=== PATIENT | male | born 1985 | race Asian ===

== ENCOUNTER 2023-06-15 13:30 | Emergency (ER) | payer MEDICAID ==
[~2023-06-15] VITALS: Ht 165.1 cm; Wt 72.6 kg
[~2023-06-15 13:30] MED LIST: CEFU500T73 PO; PYR100 PO
[2023-06-15 14:46] VITALS: BP 139/90; PULSE 83; RESP 16; TEMP 97.1; O2SAT 99
[2023-06-15 16:16] LABS: APPEARANCE,URINE CLEAR (CLEAR); BILIRUBIN,URINE 1+ (NEGATIVE); BLOOD, URINE TRACE-I (NEGATIVE); COLOR,URINE YELLOW (YELLOW); LEUKOCYTE ESTERASE ,URINE 1+ (NEGATIVE); NITRITE, URINE NEGATIVE (NEGATIVE); PROTEIN,URINE NEGATIVE (NEGATIVE); UGLUCOSE NEGATIVE (NEGATIVE); UROBILINOGEN,URINE 0.2 EU/dL (0.2 - 1)
[2023-06-15 16:26] LABS: BACTERIA,URINE FEW /HPF (None Seen); RBC,URINE 0-5 /HPF (0-5)
[2023-06-15 16:27] LABS: ICTOTEST NEGATIVE (NEGATIVE); SQUAMOUS EPITHELIAL CELL,UR 0-3 (FEW) /LPF (0-3 (FEW))
[2023-06-15] MEDS ORDERED: VIB100 PO (16:29)
[2023-06-15] MEDS: cefTRIAXone 500 MG in LIDOCAINE MPF 1% 1 ML IM ONE (16:46)
[2023-06-15 16:50] LABS: FLU A ANTIGEN negative (NEGATIVE); FLU B ANTIGEN negative (NEGATIVE)
[2023-06-16 09:04] LABS: NEISSERIA GONORRHOEAE PCR Detected (NOTdetected)
== END 2023-06-15 16:37 | disposition home or self-care (01) ==
LOC: MED 13:30
DX: N39.0 Urinary tract infection, site not specified (principal); Z20.822 Contact with and (suspected) exposure to COVID-19; Z79.899 Other long term (current) drug therapy; Z79.2 Long term (current) use of antibiotics
CPT/HCPCS: 81001; 87086; 87491; 99283

== ENCOUNTER 2023-06-24 04:04 | Emergency (ER) | payer MEDICAID ==
[~2023-06-24] VITALS: Ht 165.1 cm; Wt 72.6 kg
[~2023-06-24 04:04] MED LIST changes: +VIB100 PO
[2023-06-24 04:13] VITALS: BP 149/91; PULSE 96; RESP 20; TEMP 98; O2SAT 98
[2023-06-24 04:54] LABS: APPEARANCE,URINE CLEAR (CLEAR); BILIRUBIN,URINE NEGATIVE (NEGATIVE); BLOOD, URINE TRACE-I (NEGATIVE); COLOR,URINE YELLOW (YELLOW); LEUKOCYTE ESTERASE ,URINE 1+ (NEGATIVE); NITRITE, URINE NEGATIVE (NEGATIVE); PROTEIN,URINE NEGATIVE (NEGATIVE); UGLUCOSE NEGATIVE (NEGATIVE); UROBILINOGEN,URINE 0.2 EU/dL (0.2 - 1)
[2023-06-24] MEDS ORDERED: cefTRIAXone 500 MG in LIDOCAINE MPF 1% 1 ML IM ONE (05:00)
[2023-06-24] MEDS ORDERED: DOXYCYCLINE 100 MG CAP PO STA (05:00)
[2023-06-24 05:02] LABS: RBC,URINE 0-5 /HPF (0-5); WBC,URINE TOO MANY TO COUNT /HPF (0-5)
[2023-06-24 05:03] LABS: BACTERIA,URINE 10-30 (MOD) /HPF (None Seen); MUCUS,URINE 1+ /LPF (None Seen); SQUAMOUS EPITHELIAL CELL,UR 0-3 (FEW) /LPF (0-3 (FEW))
[2023-06-24] MEDS ORDERED: DOXY-690 PO (05:03)
[2023-06-24] MEDS ORDERED: PYR100 PO (05:03)
[2023-06-24] MEDS ORDERED: cefTRIAXone 500 MG VIAL ONE (05:06)
[2023-06-24] MEDS ORDERED: LIDOCAINE MPF 1% 5 ML ONE (05:06)
[2023-06-24 05:26] VITALS: BP 149/91; PULSE 96; RESP 20; TEMP 98; O2SAT 98
[2023-06-24 11:10] LABS: NEISSERIA GONORRHOEAE PCR Detected (NOTdetected)
== END 2023-06-24 05:26 | disposition home or self-care (01) ==
LOC: MED 04:04
DX: N34.2 Other urethritis (principal); A64 Unspecified sexually transmitted disease; Z79.899 Other long term (current) drug therapy; Z79.2 Long term (current) use of antibiotics
CPT/HCPCS: 81001; 87086; 87491; 96372; 99283; J0696; J2001

== ENCOUNTER 2023-07-13 03:40 | Inpatient (IN) | payer MEDICAID ==
[~2023-07-13] VITALS: Ht 170.2 cm; Wt 76.2 kg
[2023-07-13] VITALS (15 sets, daily range): BP systolic 117–181; BP diastolic 56–105; PULSE 71–116; RESP 7–22; TEMP 96.7–98.8; O2SAT 93–100
[~2023-07-13 03:40] MED LIST changes: +DOXY-690 PO
[2023-07-13] MEDS ORDERED: NALOXONE PFS 2 MG/2 ML SYR ONE ×2 (03:51→03:55)
[2023-07-13] MEDS ORDERED: NALO4SPR NS (04:05)
[2023-07-13] MEDS: NALOXONE PFS 2 MG/2 ML SYR IVP ONE ×2 (04:09→05:18)
[2023-07-13] MEDS: NACL 0.9% IV ONE (07:25)
[2023-07-13] MEDS: NALOXONE PFS IV ONE (07:25)
[2023-07-13] MEDS: NALOXONE PFS 2 MG/2 ML SYR ONE (07:35)
[2023-07-13 08:22] LABS: BASOPHILS % (AUTO) 0.2 % (0.0-2.0); HEMATOCRIT 44.3 % (36-52); HEMOGLOBIN 14.3 g/dL (12.0-18.0); LYMPHOCYTES # (AUTO) 0.8 K/uL (2.0-11.5); LYMPHOCYTES % (AUTO) 5.4 % (20.5-51.1); MEAN CORPUSCULAR HEMOGLOBIN 28 pg (27-31); MEAN CORPUSCULAR HGB CONC 32 g/dL (33-37); MEAN CORPUSCULAR VOLUME 87.4 fL (80-94); MONOCYTES # (AUTO) 0.7 K/uL (0.8-1.0); MONOCYTES % (AUTO) 4.6 % (1.7-9.3); NEUTROPHILS # (AUTO) 13.7 K/uL (1.8-7.7); NEUTROPHILS % (AUTO) 89.8 % (42.2-75.2); PLATELET COUNT (AUTO) 299 K/uL (140-450); RED BLOOD CELL COUNT(AUTO) 5.07 MIL/uL (4.20-6.10); RED CELL DISTRIBUTION WIDTH 13.1 % (11.6-13.7); WHITE BLOOD COUNT (AUTO) 15.3 K/uL (4.8-10.8)
[2023-07-13 08:41] LABS: ALBUMIN 3.9 g/dL (3.4-5.0); ANION GAP 7.9 (8-16); CARBON DIOXIDE 31.2 mmol/L (21-32); POTASSIUM 4.1 mmol/L (3.5-5.1); TOTAL BILIRUBIN 0.3 mg/dL (0.0-1.0); TOTAL PROTEIN, SERUM 7.8 g/dL (6.4-8.2)
[2023-07-13 08:43] LABS: LACTIC ACID 0.9 mmol/L (0.4-2.0)
[2023-07-13] MEDS: DEXT 5% / NACL 0.45% 1,000 ML IV SCH (09:55)
[2023-07-13] MEDS: PANTOPRAZOLE 40 MG INJ VIAL IVP SCH (11:37)
[2023-07-13] MEDS: ENOXAPARIN 40 MG/0.4 ML SYR SUBQ SCH (11:37)
[2023-07-13 22:48] LABS: BARBITURATE, URINE NEGATIVE ng/ml (NEG <=200)
[2023-07-13 22:49] LABS: AMPHETAMINE, URINE POSITIVE ng/ml (NEG <=1000); BENZODIAZEPINE, URINE NEGATIVE ng/mL (NEG <=200); CANNABINOID, URINE NEGATIVE ng/mL (NEG <=50); COCAINE, URINE NEGATIVE ng/mL (NEG <=300); OPIATE, URINE NEGATIVE ng/mL (NEG <=2000); PHENCYCLIDINE SCREEN,URINE NEGATIVE ng/mL (NEG <=25)
[2023-07-14] VITALS (27 sets, daily range): BP systolic 70–145; BP diastolic 18–85; PULSE 117–156; RESP 14–36; TEMP 98.3–100.3; O2SAT 87–100
[2023-07-14] MEDS: LORazepam 2 MG/ML VIAL ONE (02:46)
[2023-07-14] MEDS: LORazepam 2 MG/ML VIAL IVP PRN (02:51)
[2023-07-14 06:43] LABS: BASOPHILS # (AUTO) 0.1 K/uL (0.00-0.22); BASOPHILS % (AUTO) 0.3 % (0.0-2.0); HEMATOCRIT 44.8 % (36-52); HEMOGLOBIN 14.5 g/dL (12.0-18.0); LYMPHOCYTES # (AUTO) 1.3 K/uL (2.0-11.5); LYMPHOCYTES % (AUTO) 7.6 % (20.5-51.1); MEAN CORPUSCULAR HEMOGLOBIN 29 pg (27-31); MEAN CORPUSCULAR HGB CONC 32 g/dL (33-37); MEAN CORPUSCULAR VOLUME 88.4 fL (80-94); MONOCYTES % (AUTO) 5.6 % (1.7-9.3); NEUTROPHILS # (AUTO) 15.1 K/uL (1.8-7.7); NEUTROPHILS % (AUTO) 86.5 % (42.2-75.2); PLATELET COUNT (AUTO) 295 K/uL (140-450); RED BLOOD CELL COUNT(AUTO) 5.07 MIL/uL (4.20-6.10); RED CELL DISTRIBUTION WIDTH 13.8 % (11.6-13.7); WHITE BLOOD COUNT (AUTO) 17.5 K/uL (4.8-10.8)
[2023-07-14 06:56] LABS: ALBUMIN 3.8 g/dL (3.4-5.0); ANION GAP 11.5 (8-16); CALCIUM 8.3 mg/dL (8.5-10.1); CARBON DIOXIDE 29.8 mmol/L (21-32); CREATININE 1.3 mg/dL (0.6-1.3); POTASSIUM 4.3 mmol/L (3.5-5.1); TOTAL BILIRUBIN 0.8 mg/dL (0.0-1.0); TOTAL PROTEIN, SERUM 7.8 g/dL (6.4-8.2)
[2023-07-14 09:32] LABS: BLOOD GAS BASE EXCESS -6.2 mmol/L (-2.0-2.0); BLOOD GAS HCO3 23.7 mmol/L (22-26); BLOOD GAS PCO2 66.1 mmHg (35-45); BLOOD GAS PH 7.173 (7.35-7.45)
[2023-07-14 09:33] LABS: BLOOD GAS O2 SAT% 94.7 % (92.0-98.5)
[2023-07-14] MEDS: PIPERACILLIN/TAZOBACTAM 3.375 GM in DEXTROSE 5% 50 ML IV SCH (12:00)
[2023-07-14] MEDS: METOPROLOL 5 MG/5 ML VIAL IV SCH (12:24)
[2023-07-14] MEDS ORDERED: PROPOFOL 1000 MG/100 ML PREMIX 100 ML IV PRN (12:45)
[2023-07-14] MEDS: NACL 0.9% 1,000 ML IV ONE (12:45)
[2023-07-14] MEDS ORDERED: NOREPINEPHRINE 4 MG in DEXTROSE 5% 250 ML IV PRN ×2 (13:10→13:30)
[2023-07-14] MEDS: NOREPINEPHRINE 4 MG/4 ML VIAL IV ONE ×4 (14:01→20:40)
[2023-07-14] MEDS: NOREPINEPHRINE 4 MG in DEXTROSE 5% 250 ML IV PRN (14:03)
[2023-07-14] MEDS ORDERED: DEXMEDETOMIDINE HCL 400 MCG in NACL 0.9% 96 ML IV PRN ×2 (15:10→15:30)
[2023-07-14] MEDS ORDERED: ETOMIDATE 20 MG/10 ML VIAL IVP ONE (15:15)
[2023-07-14] MEDS ORDERED: ROCURONIUM 50 MG/5 ML VIAL IV ONE (15:15)
[2023-07-14] MEDS: DEXMEDETOMIDINE HCL 400 MCG in NACL 0.9% 96 ML IV PRN (17:28)
[2023-07-14 20:10] LABS: AMPHETAMINE, URINE POSITIVE ng/ml (NEG <=1000); BARBITURATE, URINE NEGATIVE ng/ml (NEG <=200); BENZODIAZEPINE, URINE POSITIVE ng/mL (NEG <=200); CANNABINOID, URINE NEGATIVE ng/mL (NEG <=50); COCAINE, URINE NEGATIVE ng/mL (NEG <=300); OPIATE, URINE NEGATIVE ng/mL (NEG <=2000); PHENCYCLIDINE SCREEN,URINE NEGATIVE ng/mL (NEG <=25)
[2023-07-14] MEDS: NOREPINEPHRINE 8 MG in DEXTROSE 5% 250 ML IV PRN (22:15)
[2023-07-14] MEDS ORDERED: MELATONIN 3 MG TAB PO PRN (23:15)
[2023-07-15] VITALS (56 sets, daily range): BP systolic 60–151; BP diastolic 27–97; PULSE 119–145; RESP 14–28; TEMP 99.6–101.5; O2SAT 90–98
[2023-07-15] MEDS: NOREPINEPHRINE 4 MG/4 ML VIAL IV ONE ×3 (01:11→07:55)
[2023-07-15 06:24] LABS: BASOPHILS % (AUTO) 0.1 % (0.0-2.0); EOSINOPHILS % (AUTO) 0.3 % (0.0-4.0); HEMATOCRIT 41.5 % (36-52); HEMOGLOBIN 13.6 g/dL (12.0-18.0); LYMPHOCYTES # (AUTO) 0.6 K/uL (2.0-11.5); LYMPHOCYTES % (AUTO) 22.8 % (20.5-51.1); MEAN CORPUSCULAR HEMOGLOBIN 29 pg (27-31); MEAN CORPUSCULAR HGB CONC 33 g/dL (33-37); MEAN CORPUSCULAR VOLUME 87.9 fL (80-94); MONOCYTES # (AUTO) 0.1 K/uL (0.8-1.0); MONOCYTES % (AUTO) 4.8 % (1.7-9.3); NEUTROPHILS # (AUTO) 1.8 K/uL (1.8-7.7); PLATELET COUNT (AUTO) 169 K/uL (140-450); RED BLOOD CELL COUNT(AUTO) 4.72 MIL/uL (4.20-6.10); RED CELL DISTRIBUTION WIDTH 13.2 % (11.6-13.7); WHITE BLOOD COUNT (AUTO) 2.5 K/uL (4.8-10.8)
[2023-07-15 06:43] LABS: ALBUMIN 2.1 g/dL (3.4-5.0); ANION GAP 13.6 (8-16); CALCIUM 7.2 mg/dL (8.5-10.1); CARBON DIOXIDE 25.5 mmol/L (21-32); POTASSIUM 5.1 mmol/L (3.5-5.1); TOTAL BILIRUBIN 0.6 mg/dL (0.0-1.0); TOTAL PROTEIN, SERUM 5.4 g/dL (6.4-8.2)
[2023-07-15 06:46] LABS: CREATININE 6.1 mg/dL (0.6-1.3)
[2023-07-15] MEDS: PROPOFOL 1000 MG/100 ML PREMIX 100 ML IV ONE (08:38)
[2023-07-15] MEDS: NACL 0.9% 1,000 ML IV SCH (08:55)
[2023-07-15 10:26] LABS: BLOOD GAS PCO2 38.3 mmHg (35-45); BLOOD GAS PH 7.199 (7.35-7.45)
[2023-07-15 10:27] LABS: BLOOD GAS BASE EXCESS -12.7 mmol/L (-2.0-2.0); BLOOD GAS HCO3 14.6 mmol/L (22-26); BLOOD GAS O2 SAT% 92.8 % (92.0-98.5); BLOOD GAS PO2 68.6 mmHg (75-100)
[2023-07-15] MEDS: ACETAMINOPHEN EXTRA STRENGTH 500 MG TAB NG PRN (11:00)
[2023-07-15] MEDS: PIPERACILLIN/TAZOBACTAM 2.25 GM in DEXTROSE 5% 50 ML IV SCH (11:01)
[2023-07-15] MEDS: NOREPINEPHRINE 16 MG in DEXTROSE 5% 250 ML IV PRN (11:10)
[2023-07-15 11:56] LABS: ANION GAP 19.7 (8-16); CARBON DIOXIDE 19.1 mmol/L (21-32); POTASSIUM 4.8 mmol/L (3.5-5.1)
[2023-07-15 11:59] LABS: CREATININE 6.4 mg/dL (0.6-1.3)
[2023-07-15] MEDS: PROPOFOL 1000 MG/100 ML PREMIX 100 ML IV PRN (13:43)
[2023-07-16] VITALS (42 sets, daily range): BP systolic 104–153; BP diastolic 61–113; PULSE 89–125; RESP 15–23; TEMP 95–103.6; O2SAT 91–98
[2023-07-16] MEDS: ACETAMINOPHEN 100 ML IV ONE (00:04)
[2023-07-16 08:30] LABS: HEMATOCRIT 43.1 % (36-52); HEMOGLOBIN 14.2 g/dL (12.0-18.0); MEAN CORPUSCULAR HEMOGLOBIN 29 pg (27-31); MEAN CORPUSCULAR HGB CONC 33 g/dL (33-37); MEAN CORPUSCULAR VOLUME 86.7 fL (80-94); PLATELET COUNT (AUTO) 98 K/uL (140-450); RED BLOOD CELL COUNT(AUTO) 4.97 MIL/uL (4.20-6.10); RED CELL DISTRIBUTION WIDTH 13.4 % (11.6-13.7)
[2023-07-16 08:33] LABS: WHITE BLOOD COUNT (AUTO) 25.4 K/uL (4.8-10.8)
[2023-07-16 08:36] LABS: ANION GAP 19.7 (8-16); CALCIUM 6.5 mg/dL (8.5-10.1); CARBON DIOXIDE 17.9 mmol/L (21-32); TOTAL BILIRUBIN 0.9 mg/dL (0.0-1.0); TOTAL PROTEIN, SERUM 6.2 g/dL (6.4-8.2)
[2023-07-16 08:38] LABS: CREATININE 7.7 mg/dL (0.6-1.3); POTASSIUM 6.6 mmol/L (3.5-5.1)
[2023-07-16] MEDS ORDERED: SODIUM BICARBONATE 8.4% 50 MEQ in NACL 0.9% 1,000 ML IV SCH (09:20)
[2023-07-16 09:43] LABS: BASOPHILS % (MANUAL) 0 % (0-2); BLASTS, MANUAL % 0 % (0-0); EOSINOPHILS % (MANUAL) 0 % (0-4); LYMPHOCYTES % (MANUAL) 2 % (20-46); METAMYELOCYTES % 0 % (0-0); MONOCYTES % (MANUAL) 0 % (5-12); MYELOCYTES % 0 % (0-0); OTHER CELLS,MANUAL % 0 (0-0); PLATELET ESTIMATE DECREASED; PROMYELOCYTES % 0 % (0-0)
[2023-07-16] MEDS ORDERED: CALCIUM GLUC 1 GM/50 mL NS BAG 50 ML IV ONE (09:55)
[2023-07-16] MEDS: DEXTROSE 50% 50 ML SYR IVP SCH (10:15)
[2023-07-16] MEDS: INSULIN REGULAR, HUMAN 100 UNIT/ML VIAL IVP SCH (10:16)
[2023-07-16] MEDS: SODIUM BICARBONATE 8.4% PFS 50 MEQ/50 ML SYR IVP SCH ×2 (10:16→11:15)
[2023-07-16] MEDS: CALCIUM GLUC 1 GM/50 mL NS BAG 50 ML IV SCH ×2 (10:27→11:24)
[2023-07-16 10:52] LABS: BASOPHILS % (AUTO) 0.1 % (0.0-2.0); EOSINOPHILS % (AUTO) 0.1 % (0.0-4.0); HEMATOCRIT 38.4 % (36-52); HEMOGLOBIN 12.6 g/dL (12.0-18.0); LYMPHOCYTES # (AUTO) 0.4 K/uL (2.0-11.5); LYMPHOCYTES % (AUTO) 2.3 % (20.5-51.1); MEAN CORPUSCULAR HEMOGLOBIN 29 pg (27-31); MEAN CORPUSCULAR HGB CONC 33 g/dL (33-37); MEAN CORPUSCULAR VOLUME 87.2 fL (80-94); MONOCYTES # (AUTO) 0.1 K/uL (0.8-1.0); MONOCYTES % (AUTO) 0.4 % (1.7-9.3); NEUTROPHILS # (AUTO) 18.9 K/uL (1.8-7.7); NEUTROPHILS % (AUTO) 97.1 % (42.2-75.2); PLATELET COUNT (AUTO) 80 K/uL (140-450); RED CELL DISTRIBUTION WIDTH 13.5 % (11.6-13.7); WHITE BLOOD COUNT (AUTO) 19.4 K/uL (4.8-10.8)
[2023-07-16 11:04] LABS: ALBUMIN 1.7 g/dL (3.4-5.0); ANION GAP 16.5 (8-16); CALCIUM 6.2 mg/dL (8.5-10.1); CARBON DIOXIDE 21.1 mmol/L (21-32); TOTAL BILIRUBIN 0.9 mg/dL (0.0-1.0); TOTAL PROTEIN, SERUM 5.5 g/dL (6.4-8.2)
[2023-07-16] MEDS ORDERED: ACETAMINOPHEN 325 MG TAB PO PRN (11:05)
[2023-07-16 11:07] LABS: CREATININE 7.7 mg/dL (0.6-1.3); POTASSIUM 6.6 mmol/L (3.5-5.1)
[2023-07-16 13:02] LABS: BLOOD GAS BASE EXCESS -12.1 mmol/L (-2.0-2.0); BLOOD GAS HCO3 15.5 mmol/L (22-26); BLOOD GAS PH 7.195 (7.35-7.45); BLOOD GAS PO2 61.8 mmHg (75-100)
[2023-07-16 13:03] LABS: BLOOD GAS O2 SAT% 89.5 % (92.0-98.5)
[2023-07-16] MEDS: BUMETANIDE 1 MG/4 ML VIAL IV SCH (13:11)
[2023-07-17] VITALS (35 sets, daily range): BP systolic 93–139; BP diastolic 50–84; PULSE 81–93; RESP 14–24; TEMP 97.3–99.2; O2SAT 94–100
[2023-07-17 05:44] LABS: HEMATOCRIT 35.7 % (36-52); HEMOGLOBIN 11.9 g/dL (12.0-18.0); LYMPHOCYTES # (AUTO) 0.5 K/uL (2.0-11.5); MEAN CORPUSCULAR HEMOGLOBIN 29 pg (27-31); MEAN CORPUSCULAR HGB CONC 33 g/dL (33-37); MEAN CORPUSCULAR VOLUME 85.5 fL (80-94); MONOCYTES # (AUTO) 0.3 K/uL (0.8-1.0); MONOCYTES % (AUTO) 1.3 % (1.7-9.3); NEUTROPHILS # (AUTO) 24.5 K/uL (1.8-7.7); NEUTROPHILS % (AUTO) 96.7 % (42.2-75.2); PLATELET COUNT (AUTO) 52 K/uL (140-450); RED BLOOD CELL COUNT(AUTO) 4.17 MIL/uL (4.20-6.10); RED CELL DISTRIBUTION WIDTH 13.4 % (11.6-13.7)
[2023-07-17 05:46] LABS: WHITE BLOOD COUNT (AUTO) 25.3 K/uL (4.8-10.8)
[2023-07-17 05:47] LABS: ALBUMIN 1.6 g/dL (3.4-5.0); ANION GAP 17.7 (8-16); CALCIUM 7.3 mg/dL (8.5-10.1); CARBON DIOXIDE 22.3 mmol/L (21-32); TOTAL BILIRUBIN 0.8 mg/dL (0.0-1.0); TOTAL PROTEIN, SERUM 5.5 g/dL (6.4-8.2)
[2023-07-17] MEDS: CALCIUM GLUC 1 GM/50 mL NS BAG 50 ML IV SCH (09:28)
[2023-07-17] MEDS ORDERED: VANCOMYCIN PER PHARMACY MC PRN (18:55)
[2023-07-17] MEDS: CEFEPIME 1,000 MG in DEXTROSE 5% 50 ML IV SCH (19:40)
[2023-07-17] MEDS: VANCOMYCIN 1,000 MG in DEXTROSE 5% 250 ML IV SCH (22:32)
[2023-07-18] VITALS (30 sets, daily range): BP systolic 92–126; BP diastolic 54–78; PULSE 84–107; RESP 18–39; TEMP 97.3–99.7; O2SAT 91–99
[2023-07-18 06:19] LABS: ANION GAP 15.9 (8-16); CALCIUM 7.6 mg/dL (8.5-10.1); CARBON DIOXIDE 25.2 mmol/L (21-32); POTASSIUM 4.1 mmol/L (3.5-5.1)
[2023-07-18 06:27] LABS: CREATININE 5.1 mg/dL (0.6-1.3)
[2023-07-18 09:45] LABS: BLOOD GAS BASE EXCESS -3.7 mmol/L (-2.0-2.0); BLOOD GAS HCO3 20.5 mmol/L (22-26); BLOOD GAS PH 7.398 (7.35-7.45); BLOOD GAS PO2 66.2 mmHg (75-100)
[2023-07-18 09:46] LABS: BLOOD GAS O2 SAT% 91.9 % (92.0-98.5)
[2023-07-18 16:06] LABS: HEPATITIS A ANTIBODY IGM Negative (Negative); HEPATITIS B CORE AB TOTAL Negative (Negative); HEPATITIS B CORE, IGM Negative (Negative); HEPATITIS B SURFACE ANTIBODY Reactive (.); HEPATITIS B SURFACE ANTIGEN Negative (Negative); HEPATITIS C VIRUS ANTIBODY Non Reactive (Non Reactive)
[2023-07-18 16:09] LABS: HEPATITIS A ANTIBODY TOTAL Positive (Negative)
[2023-07-18] MEDS: fentaNYL citrate 1 MG in NACL 0.9% 80 ML IV PRN (17:13)
[2023-07-18] MEDS: MIDAZOLAM MDV 50 MG in NACL 0.9% 40 ML IV PRN (17:21)
[2023-07-18] MEDS: CLINDAMYCIN 600 MG in DEXTROSE 5% 50 ML IV SCH (17:31)
[2023-07-18] MEDS: BUMETANIDE 1 MG/4 ML VIAL IV ONE (20:46)
[2023-07-18] MEDS: DOCUSATE 100 MG/10 ML UDC GT SCH (20:46)
[2023-07-18] MEDS: DOCUSATE 100 MG/10 ML UDC ONE (21:22)
[2023-07-18] MEDS: BUMETANIDE ONE (21:23)
[2023-07-19] VITALS (38 sets, daily range): BP systolic 98–126; BP diastolic 53–69; PULSE 84–103; RESP 21–55; TEMP 98.6–100; O2SAT 91–100
[2023-07-19] MEDS: MIDAZOLAM MDV 50 MG/10 ML VIAL IV ONE ×2 (04:46→04:47)
[2023-07-19] MEDS: fentaNYL citrate 0.05 MG/ML VIAL ONE ×2 (05:50→06:05)
[2023-07-19] MEDS: DOCUSATE 100 MG/10 ML UDC ONE ×3 (08:06→20:06)
[2023-07-19 08:34] LABS: BASOPHILS % (AUTO) 0.1 % (0.0-2.0); EOSINOPHILS # (AUTO) 0.1 K/uL (0-0.4); EOSINOPHILS % (AUTO) 0.4 % (0.0-4.0); HEMATOCRIT 30.2 % (36-52); HEMOGLOBIN 10.2 g/dL (12.0-18.0); MEAN CORPUSCULAR HEMOGLOBIN 29 pg (27-31); MEAN CORPUSCULAR HGB CONC 34 g/dL (33-37); MEAN CORPUSCULAR VOLUME 84.6 fL (80-94); MONOCYTES # (AUTO) 0.4 K/uL (0.8-1.0); MONOCYTES % (AUTO) 1.9 % (1.7-9.3); NEUTROPHILS # (AUTO) 18.3 K/uL (1.8-7.7); NEUTROPHILS % (AUTO) 92.6 % (42.2-75.2); PLATELET COUNT (AUTO) 73 K/uL (140-450); RED BLOOD CELL COUNT(AUTO) 3.57 MIL/uL (4.20-6.10); RED CELL DISTRIBUTION WIDTH 13.9 % (11.6-13.7); WHITE BLOOD COUNT (AUTO) 19.8 K/uL (4.8-10.8)
[2023-07-19 08:44] LABS: ANION GAP 16.8 (8-16); CALCIUM 7.4 mg/dL (8.5-10.1); POTASSIUM 3.8 mmol/L (3.5-5.1)
[2023-07-19 08:50] LABS: CREATININE 6.7 mg/dL (0.6-1.3)
[2023-07-19] MEDS ORDERED: METOCLOPRAMIDE 10 MG/2 ML INJ VIAL IVP SCH (12:00)
[2023-07-19 12:43] LABS: BLOOD GAS HCO3 19.7 mmol/L (22-26); BLOOD GAS PCO2 44.4 mmHg (35-45); BLOOD GAS PH 7.266 (7.35-7.45); BLOOD GAS PO2 63.1 mmHg (75-100)
[2023-07-19 12:44] LABS: BLOOD GAS O2 SAT% 87.4 % (92.0-98.5)
[2023-07-19] MEDS: VANCOMYCIN 1,000 MG in DEXTROSE 5% 250 ML IV SCH (16:37)
[2023-07-19] MEDS: bisacodyL 10 MG SUPP RC PRN (16:37)
[2023-07-19] MEDS: METOCLOPRAMIDE 10 MG/2 ML INJ VIAL ONE (17:25)
[2023-07-19] MEDS: METOCLOPRAMIDE 10 MG/2 ML INJ VIAL IVP SCH (18:00)
[2023-07-19] MEDS: ALBUTEROL SULFATE/IPRATROPIU 3 ML SOL IH SCH (19:53)
[2023-07-19] MEDS: ALBUTEROL SULFATE/IPRATROPIU 3 ML SOL IH ONE (19:56)
[2023-07-19] MEDS: LACTULOSE 20 GM/30 ML UDC ONE (20:06)
[2023-07-19] MEDS: LACTULOSE 20 GM/30 ML UDC GT SCH (20:07)
[2023-07-19] MEDS: ALBUMIN HUMAN 25% 100 ML IV ONE ×2 (23:26→23:30)
[2023-07-19] MEDS: BUMETANIDE 1 MG/4 ML VIAL IV ONE (23:27)
[2023-07-19] MEDS: BUMETANIDE 4 ML ONE ×2 (23:30)
[2023-07-20] VITALS (39 sets, daily range): BP systolic 97–127; BP diastolic 48–76; PULSE 89–114; RESP 18–24; TEMP 97.5–99.7; O2SAT 90–100
[2023-07-20] MEDS: METOCLOPRAMIDE 10 MG/2 ML INJ VIAL ONE ×5 (00:17→19:00)
[2023-07-20] MEDS: ALBUTEROL SULFATE/IPRATROPIU 3 ML SOL IH ONE ×3 (00:43→19:00)
[2023-07-20] MEDS: fentaNYL citrate 0.05 MG/ML VIAL ONE ×2 (00:51→19:00)
[2023-07-20 05:40] LABS: BASOPHILS % (AUTO) 0.2 % (0.0-2.0); EOSINOPHILS % (AUTO) 0.2 % (0.0-4.0); HEMATOCRIT 29.7 % (36-52); HEMOGLOBIN 9.8 g/dL (12.0-18.0); LYMPHOCYTES # (AUTO) 0.7 K/uL (2.0-11.5); LYMPHOCYTES % (AUTO) 3.2 % (20.5-51.1); MEAN CORPUSCULAR HEMOGLOBIN 28 pg (27-31); MEAN CORPUSCULAR HGB CONC 33 g/dL (33-37); MEAN CORPUSCULAR VOLUME 84.9 fL (80-94); MONOCYTES # (AUTO) 0.7 K/uL (0.8-1.0); MONOCYTES % (AUTO) 3.1 % (1.7-9.3); NEUTROPHILS # (AUTO) 21.4 K/uL (1.8-7.7); NEUTROPHILS % (AUTO) 93.3 % (42.2-75.2); PLATELET COUNT (AUTO) 112 K/uL (140-450); RED CELL DISTRIBUTION WIDTH 14.2 % (11.6-13.7)
[2023-07-20] MEDS: MIDAZOLAM MDV 50 MG/10 ML VIAL IV ONE ×2 (05:40→19:00)
[2023-07-20 05:50] LABS: ANION GAP 15.7 (8-16); CALCIUM 8.1 mg/dL (8.5-10.1); CARBON DIOXIDE 26.9 mmol/L (21-32); POTASSIUM 4.6 mmol/L (3.5-5.1)
[2023-07-20 06:29] LABS: CREATININE 6.2 mg/dL (0.6-1.3)
[2023-07-20] MEDS: LACTULOSE 20 GM/30 ML UDC ONE ×3 (09:37→19:00)
[2023-07-20] MEDS: DOCUSATE 100 MG/10 ML UDC ONE ×4 (09:38→19:03)
[2023-07-20] MEDS: DOCUSATE 100 MG/10 ML UDC GT SCH (09:39)
[2023-07-20] MEDS: LACTULOSE 20 GM/30 ML UDC GT SCH (09:39)
[2023-07-20 10:19] LABS: BLOOD GAS BASE EXCESS -7.3 mmol/L (-2.0-2.0); BLOOD GAS HCO3 20.2 mmol/L (22-26); BLOOD GAS PCO2 49.3 mmHg (35-45); BLOOD GAS PO2 90.4 mmHg (75-100)
[2023-07-20 10:20] LABS: BLOOD GAS O2 SAT% 95.5 % (92.0-98.5)
[2023-07-20] MEDS: METOCLOPRAMIDE 10 MG/2 ML INJ VIAL IVP SCH ×2 (12:51→17:53)
[2023-07-20] MEDS: FUROSEMIDE 100 MG/10 ML VIAL IV SCH (15:20)
[2023-07-20] MEDS: CLINDAMYCIN 600MG/D5W PM 50 ML IV SCH (18:01)
[2023-07-20] MEDS: BUMETANIDE 4 ML ONE ×2 (19:00)
[2023-07-20] MEDS: ALBUMIN HUMAN 25% 100 ML IV ONE (19:00)
[2023-07-20] MEDS: BUMETANIDE ONE (19:03)
[2023-07-20] MEDS: QUEtiapine FUMARATE 25 MG TAB GT SCH (20:07)
[2023-07-21] VITALS (49 sets, daily range): BP systolic 92–124; BP diastolic 52–96; PULSE 85–105; RESP 18–23; TEMP 98.3–100; O2SAT 92–98
[2023-07-21 10:07] LABS: HEMATOCRIT 29.2 % (36-52); HEMOGLOBIN 9.6 g/dL (12.0-18.0); MEAN CORPUSCULAR HEMOGLOBIN 28 pg (27-31); MEAN CORPUSCULAR HGB CONC 33 g/dL (33-37); MEAN CORPUSCULAR VOLUME 85.6 fL (80-94); PLATELET COUNT (AUTO) 165 K/uL (140-450); RED BLOOD CELL COUNT(AUTO) 3.41 MIL/uL (4.20-6.10); RED CELL DISTRIBUTION WIDTH 14.7 % (11.6-13.7); WHITE BLOOD COUNT (AUTO) 23.8 K/uL (4.8-10.8)
[2023-07-21 10:24] LABS: LYMPHOCYTES % (MANUAL) 2 % (20-46); MONOCYTES % (MANUAL) 3 % (5-12)
[2023-07-21 10:26] LABS: ANION GAP 21.5 (8-16); CALCIUM 7.5 mg/dL (8.5-10.1); CARBON DIOXIDE 23.7 mmol/L (21-32); POTASSIUM 5.2 mmol/L (3.5-5.1)
[2023-07-21 10:29] LABS: CREATININE 7.8 mg/dL (0.6-1.3)
[2023-07-21 12:56] LABS: BLOOD GAS BASE EXCESS -6.6 mmol/L (-2.0-2.0); BLOOD GAS HCO3 18.3 mmol/L (22-26); BLOOD GAS PH 7.348 (7.35-7.45); BLOOD GAS PO2 77.7 mmHg (75-100)
[2023-07-21 12:57] LABS: BLOOD GAS O2 SAT% 94.4 % (92.0-98.5)
[2023-07-21] MEDS: methylPREDNISolone SS 125 MG/2 ML VIAL IVP SCH (13:18)
[2023-07-22] VITALS (40 sets, daily range): BP systolic 98–159; BP diastolic 51–93; PULSE 75–99; RESP 17–27; TEMP 98.6–99; O2SAT 64–99
[2023-07-22] MEDS: fentaNYL citrate 0.05 MG/ML VIAL ONE (03:37)
[2023-07-22 05:25] LABS: BASOPHILS # (AUTO) 0.1 K/uL (0.00-0.22); BASOPHILS % (AUTO) 0.2 % (0.0-2.0); HEMATOCRIT 27.6 % (36-52); HEMOGLOBIN 9.3 g/dL (12.0-18.0); LYMPHOCYTES # (AUTO) 0.7 K/uL (2.0-11.5); LYMPHOCYTES % (AUTO) 2.8 % (20.5-51.1); MEAN CORPUSCULAR HEMOGLOBIN 28 pg (27-31); MEAN CORPUSCULAR HGB CONC 34 g/dL (33-37); MEAN CORPUSCULAR VOLUME 83.3 fL (80-94); MONOCYTES # (AUTO) 0.3 K/uL (0.8-1.0); MONOCYTES % (AUTO) 1.3 % (1.7-9.3); NEUTROPHILS # (AUTO) 24.5 K/uL (1.8-7.7); NEUTROPHILS % (AUTO) 95.7 % (42.2-75.2); PLATELET COUNT (AUTO) 226 K/uL (140-450); RED BLOOD CELL COUNT(AUTO) 3.31 MIL/uL (4.20-6.10); RED CELL DISTRIBUTION WIDTH 14.2 % (11.6-13.7)
[2023-07-22 05:40] LABS: ANION GAP 17.7 (8-16); CALCIUM 7.9 mg/dL (8.5-10.1); CARBON DIOXIDE 25.8 mmol/L (21-32); POTASSIUM 4.5 mmol/L (3.5-5.1)
[2023-07-22 05:41] LABS: WHITE BLOOD COUNT (AUTO) 25.6 K/uL (4.8-10.8)
[2023-07-22 05:44] LABS: CREATININE 6.4 mg/dL (0.6-1.3)
[2023-07-23] VITALS (35 sets, daily range): BP systolic 116–166; BP diastolic 53–114; PULSE 65–109; RESP 17–29; TEMP 97.1–100.3; O2SAT 90–100
[2023-07-23] MEDS: CLINDAMYCIN 600 MG in DEXTROSE 5% 50 ML IV SCH (00:29)
[2023-07-23 05:48] LABS: HEMATOCRIT 27.9 % (36-52); HEMOGLOBIN 9.4 g/dL (12.0-18.0); LYMPHOCYTES # (AUTO) 0.7 K/uL (2.0-11.5); LYMPHOCYTES % (AUTO) 2.6 % (20.5-51.1); MEAN CORPUSCULAR HEMOGLOBIN 28 pg (27-31); MEAN CORPUSCULAR HGB CONC 34 g/dL (33-37); MEAN CORPUSCULAR VOLUME 82.9 fL (80-94); MONOCYTES # (AUTO) 0.8 K/uL (0.8-1.0); NEUTROPHILS # (AUTO) 25.8 K/uL (1.8-7.7); NEUTROPHILS % (AUTO) 94.4 % (42.2-75.2); PLATELET COUNT (AUTO) 314 K/uL (140-450); RED BLOOD CELL COUNT(AUTO) 3.37 MIL/uL (4.20-6.10); RED CELL DISTRIBUTION WIDTH 13.8 % (11.6-13.7)
[2023-07-23 05:57] LABS: WHITE BLOOD COUNT (AUTO) 27.3 K/uL (4.8-10.8)
[2023-07-23 06:22] LABS: ALBUMIN 1.8 g/dL (3.4-5.0); ANION GAP 20.6 (8-16); CALCIUM 7.3 mg/dL (8.5-10.1); CARBON DIOXIDE 22.6 mmol/L (21-32); PHOSPHORUS 7.5 mg/dL (2.5-4.9); POTASSIUM 5.2 mmol/L (3.5-5.1); TOTAL BILIRUBIN 0.7 mg/dL (0.0-1.0); TOTAL PROTEIN, SERUM 6.7 g/dL (6.4-8.2)
[2023-07-23 06:25] LABS: CREATININE 7.9 mg/dL (0.6-1.3)
[2023-07-23] MEDS: DEXMEDETOMIDINE HCL 400 MCG in NACL 0.9% 96 ML IV PRN (11:45)
[2023-07-23] MEDS: fentaNYL citrate - 50mL vial 2.5 MG in NACL 0.9% 200 ML IV PRN (18:38)
[2023-07-24] VITALS (39 sets, daily range): BP systolic 121–151; BP diastolic 44–90; PULSE 61–94; RESP 18–25; TEMP 97.3–99.3; O2SAT 92–99
[2023-07-24 10:12] LABS: HEMATOCRIT 30.1 % (36-52); MEAN CORPUSCULAR HEMOGLOBIN 28 pg (27-31); MEAN CORPUSCULAR HGB CONC 33 g/dL (33-37); MEAN CORPUSCULAR VOLUME 83.1 fL (80-94); PLATELET COUNT (AUTO) 371 K/uL (140-450); RED BLOOD CELL COUNT(AUTO) 3.62 MIL/uL (4.20-6.10); RED CELL DISTRIBUTION WIDTH 13.9 % (11.6-13.7)
[2023-07-24 10:26] LABS: ALBUMIN 1.8 g/dL (3.4-5.0); CALCIUM 7.2 mg/dL (8.5-10.1); POTASSIUM 5.3 mmol/L (3.5-5.1); TOTAL BILIRUBIN 0.7 mg/dL (0.0-1.0); TOTAL PROTEIN, SERUM 6.7 g/dL (6.4-8.2)
[2023-07-24 10:33] LABS: CARBON DIOXIDE 21.3 mmol/L (21-32); WHITE BLOOD COUNT (AUTO) 26.2 K/uL (4.8-10.8)
[2023-07-24 10:34] LABS: CREATININE 8.8 mg/dL (0.6-1.3)
[2023-07-24 10:59] LABS: BASOPHILS % (MANUAL) 0 % (0-2); BLASTS, MANUAL % 0 % (0-0); EOSINOPHILS % (MANUAL) 0 % (0-4); LYMPHOCYTES % (MANUAL) 1 % (20-46); METAMYELOCYTES % 0 % (0-0); MONOCYTES % (MANUAL) 3 % (5-12); MYELOCYTES % 0 % (0-0); OTHER CELLS,MANUAL % 0 (0-0); PLASMA CELLS 0; PLATELET ESTIMATE SLIGHTLY INCREASED; PROMYELOCYTES % 0 % (0-0); SMUDGE CELLS 0
[2023-07-25] VITALS (30 sets, daily range): BP systolic 99–185; BP diastolic 55–114; PULSE 67–119; RESP 17–35; TEMP 97.8–98.5; O2SAT 90–99
[2023-07-25] MEDS: DEXMEDETOMIDINE HCL 100 MCG/ML 2 ML VIAL IV ONE ×3 (00:16→07:05)
[2023-07-25 06:27] LABS: ANION GAP 20.5 (8-16); CALCIUM 7.7 mg/dL (8.5-10.1); CARBON DIOXIDE 23.8 mmol/L (21-32); POTASSIUM 4.3 mmol/L (3.5-5.1)
[2023-07-25 06:30] LABS: CREATININE 5.5 mg/dL (0.6-1.3)
[2023-07-25 06:45] LABS: BASOPHILS # (AUTO) 0.1 K/uL (0.00-0.22); BASOPHILS % (AUTO) 0.2 % (0.0-2.0); HEMATOCRIT 31.1 % (36-52); HEMOGLOBIN 10.2 g/dL (12.0-18.0); LYMPHOCYTES # (AUTO) 0.4 K/uL (2.0-11.5); LYMPHOCYTES % (AUTO) 0.9 % (20.5-51.1); MEAN CORPUSCULAR HEMOGLOBIN 27 pg (27-31); MEAN CORPUSCULAR HGB CONC 33 g/dL (33-37); MEAN CORPUSCULAR VOLUME 83.8 fL (80-94); MONOCYTES # (AUTO) 0.3 K/uL (0.8-1.0); MONOCYTES % (AUTO) 0.8 % (1.7-9.3); NEUTROPHILS # (AUTO) 37.9 K/uL (1.8-7.7); NEUTROPHILS % (AUTO) 98.1 % (42.2-75.2); PLATELET COUNT (AUTO) 412 K/uL (140-450); RED BLOOD CELL COUNT(AUTO) 3.72 MIL/uL (4.20-6.10); RED CELL DISTRIBUTION WIDTH 13.7 % (11.6-13.7)
[2023-07-25 06:49] LABS: WHITE BLOOD COUNT (AUTO) 38.7 K/uL (4.8-10.8)
[2023-07-25 14:36] LABS: BLOOD GAS PCO2 33.7 mmHg (35-45); BLOOD GAS PH 7.396 (7.35-7.45); BLOOD GAS PO2 69.4 mmHg (75-100)
[2023-07-25 14:37] LABS: BLOOD GAS BASE EXCESS -3.9 mmol/L (-2.0-2.0); BLOOD GAS HCO3 20.2 mmol/L (22-26); BLOOD GAS O2 SAT% 91.9 % (92.0-98.5)
[2023-07-25] MEDS: PHENYTOIN 100 MG/2 ML VIAL IVP SCH (16:19)
[2023-07-25] MEDS ORDERED: PROPOFOL 1000 MG/100 ML PREMIX 100 ML IV PRN (17:15)
[2023-07-25] MEDS ORDERED: WATER STERILE 20 ML MC ONE (22:39)
[2023-07-25] MEDS: VANCOMYCIN 500 MG VIAL PO SCH (22:41)
[2023-07-26] VITALS (38 sets, daily range): BP systolic 105–150; BP diastolic 57–94; PULSE 65–91; RESP 12–24; TEMP 97–98.8; O2SAT 90–100
[2023-07-26] MEDS: DEXMEDETOMIDINE HCL 100 MCG/ML 2 ML VIAL IV ONE (06:40)
[2023-07-26 09:46] LABS: BLOOD GAS PCO2 34.9 mmHg (35-45); BLOOD GAS PH 7.427 (7.35-7.45); BLOOD GAS PO2 147.5 mmHg (75-100)
[2023-07-26 09:47] LABS: BLOOD GAS BASE EXCESS -1.4 mmol/L (-2.0-2.0); BLOOD GAS HCO3 22.5 mmol/L (22-26); BLOOD GAS O2 SAT% 98.6 % (92.0-98.5)
[2023-07-26 11:10] LABS: BASOPHILS # (AUTO) 0.1 K/uL (0.00-0.22); BASOPHILS % (AUTO) 0.3 % (0.0-2.0); HEMATOCRIT 31.1 % (36-52); HEMOGLOBIN 10.4 g/dL (12.0-18.0); LYMPHOCYTES # (AUTO) 0.4 K/uL (2.0-11.5); LYMPHOCYTES % (AUTO) 1.6 % (20.5-51.1); MEAN CORPUSCULAR HEMOGLOBIN 28 pg (27-31); MEAN CORPUSCULAR HGB CONC 34 g/dL (33-37); MEAN CORPUSCULAR VOLUME 83.6 fL (80-94); MONOCYTES # (AUTO) 0.3 K/uL (0.8-1.0); MONOCYTES % (AUTO) 1.1 % (1.7-9.3); NEUTROPHILS # (AUTO) 25.9 K/uL (1.8-7.7); PLATELET COUNT (AUTO) 464 K/uL (140-450); RED BLOOD CELL COUNT(AUTO) 3.72 MIL/uL (4.20-6.10); RED CELL DISTRIBUTION WIDTH 13.8 % (11.6-13.7)
[2023-07-26 11:22] LABS: WHITE BLOOD COUNT (AUTO) 26.7 K/uL (4.8-10.8)
[2023-07-26 11:40] LABS: ALBUMIN 1.9 g/dL (3.4-5.0); ANION GAP 19.2 (8-16); CALCIUM 7.3 mg/dL (8.5-10.1); CARBON DIOXIDE 23.9 mmol/L (21-32); MAGNESIUM 2.5 mg/dL (1.8-2.4); POTASSIUM 5.1 mmol/L (3.5-5.1); TOTAL BILIRUBIN 0.5 mg/dL (0.0-1.0); TOTAL PROTEIN, SERUM 6.4 g/dL (6.4-8.2)
[2023-07-26 11:42] LABS: CREATININE 5.3 mg/dL (0.6-1.3)
[2023-07-26] MEDS: VANCOMYCIN HCL 25 MG/ML SOLN PO SCH (14:10)
[2023-07-26] MEDS: methylPREDNISolone SS 125 MG/2 ML VIAL IVP SCH (20:06)
[2023-07-27] VITALS (33 sets, daily range): BP systolic 104–154; BP diastolic 52–96; PULSE 72–101; RESP 12–25; TEMP 97.1–99.3; O2SAT 91–99
[2023-07-27 06:21] LABS: HEMATOCRIT 27.2 % (36-52); MEAN CORPUSCULAR HEMOGLOBIN 28 pg (27-31); MEAN CORPUSCULAR HGB CONC 33 g/dL (33-37); MEAN CORPUSCULAR VOLUME 84.8 fL (80-94); PLATELET COUNT (AUTO) 468 K/uL (140-450); RED CELL DISTRIBUTION WIDTH 13.9 % (11.6-13.7); WHITE BLOOD COUNT (AUTO) 24.4 K/uL (4.8-10.8)
[2023-07-27 06:39] LABS: ALBUMIN 1.7 g/dL (3.4-5.0); ANION GAP 21.2 (8-16); CALCIUM 6.8 mg/dL (8.5-10.1); CARBON DIOXIDE 22.1 mmol/L (21-32); MAGNESIUM 2.5 mg/dL (1.8-2.4); POTASSIUM 5.3 mmol/L (3.5-5.1); TOTAL BILIRUBIN 0.5 mg/dL (0.0-1.0); TOTAL PROTEIN, SERUM 5.7 g/dL (6.4-8.2)
[2023-07-27 06:41] LABS: CREATININE 6.1 mg/dL (0.6-1.3)
[2023-07-27 06:42] LABS: PHOSPHORUS 10.2 mg/dL (2.5-4.9)
[2023-07-27 06:44] LABS: LYMPHOCYTES % (MANUAL) 4 % (20-46); MONOCYTES % (MANUAL) 2 % (5-12)
[2023-07-27] MEDS: DEXMEDETOMIDINE HCL 100 MCG/ML 2 ML VIAL IV ONE (11:51)
[2023-07-27] MEDS: methylPREDNISolone SS 40 MG/ML VIAL IVP SCH (21:31)
[2023-07-27] MEDS ORDERED: VANCOMYCIN PER PHARMACY MC PRN (23:30)
[2023-07-28] VITALS (30 sets, daily range): BP systolic 103–198; BP diastolic 51–106; PULSE 70–124; RESP 11–30; TEMP 97.6–99.6; O2SAT 90–98
[2023-07-28] MEDS ORDERED: VANCOMYCIN 1,000 MG VIAL ONE (00:42)
[2023-07-28] MEDS: VANCOMYCIN 1GM/DEXT 5% PREMIX 200 ML IV SCH (00:51)
[2023-07-28 05:41] LABS: BASOPHILS % (AUTO) 0.2 % (0.0-2.0); HEMATOCRIT 25.7 % (36-52); HEMOGLOBIN 8.4 g/dL (12.0-18.0); LYMPHOCYTES # (AUTO) 0.3 K/uL (2.0-11.5); LYMPHOCYTES % (AUTO) 1.2 % (20.5-51.1); MEAN CORPUSCULAR HEMOGLOBIN 28 pg (27-31); MEAN CORPUSCULAR HGB CONC 33 g/dL (33-37); MEAN CORPUSCULAR VOLUME 84.8 fL (80-94); MONOCYTES # (AUTO) 0.5 K/uL (0.8-1.0); MONOCYTES % (AUTO) 1.7 % (1.7-9.3); NEUTROPHILS # (AUTO) 25.2 K/uL (1.8-7.7); NEUTROPHILS % (AUTO) 96.9 % (42.2-75.2); PLATELET COUNT (AUTO) 494 K/uL (140-450); RED BLOOD CELL COUNT(AUTO) 3.03 MIL/uL (4.20-6.10); RED CELL DISTRIBUTION WIDTH 13.7 % (11.6-13.7)
[2023-07-28 06:31] LABS: ALBUMIN 1.6 g/dL (3.4-5.0); CALCIUM 6.6 mg/dL (8.5-10.1); CARBON DIOXIDE 24.3 mmol/L (21-32); POTASSIUM 4.3 mmol/L (3.5-5.1); TOTAL BILIRUBIN 0.5 mg/dL (0.0-1.0); TOTAL PROTEIN, SERUM 5.1 g/dL (6.4-8.2)
[2023-07-28 06:34] LABS: CREATININE 4.4 mg/dL (0.6-1.3)
[2023-07-28] MEDS: VANCOMYCIN 1,000 MG in DEXTROSE 5% 250 ML IV SCH (11:24)
[2023-07-28] MEDS: QUEtiapine FUMARATE 25 MG TAB GT SCH (11:25)
[2023-07-29] VITALS: BP 129/63; PULSE 78; PULSE 81; RESP 19; TEMP 98.8; O2SAT 94
[2023-07-29 00:17] VITALS: BP 142/82; PULSE 81; RESP 19; O2SAT 96
[2023-07-29 00:36] VITALS: BP 129/63; PULSE 78; RESP 19; O2SAT 94
== END 2023-07-29 01:12 | disposition short-term general hospital (02) | DRG 720 ==
LOC: MED 03:40 → MIC 07:05 → MTU 22:00 → MIC 07-14 08:28
PROVIDERS: ADMIT Family Medicine; ATTEND Family Medicine
PROC: 5A1955Z Respiratory Ventilation, Greater than 96 Consecutive Hours (ICD-10-PCS; principal; 2023-07-13)
PROC: 0BH17EZ Insertion of Endotracheal Airway into Trachea, Via Natural or Artificial Opening (ICD-10-PCS; 2023-07-13)
PROC: 02HV33Z Insertion of Infusion Device into Superior Vena Cava, Percutaneous Approach (ICD-10-PCS; 2023-07-14)
PROC: 0B9J8ZX Drainage of Left Lower Lung Lobe, Via Natural or Artificial Opening Endoscopic, Diagnostic (ICD-10-PCS; 2023-07-15)
PROC: B544ZZA Ultrasonography of Left Jugular Veins, Guidance (ICD-10-PCS; 2023-07-15)
PROC: 05HN33Z Insertion of Infusion Device into Left Internal Jugular Vein, Percutaneous Approach (ICD-10-PCS; 2023-07-16)
PROC: 5A1D70Z Performance of Urinary Filtration, Intermittent, Less than 6 Hours Per Day (ICD-10-PCS; 2023-07-16)
PROC: 5A1D70Z Performance of Urinary Filtration, Intermittent, Less than 6 Hours Per Day (ICD-10-PCS; 2023-07-17)
PROC: 5A1D70Z Performance of Urinary Filtration, Intermittent, Less than 6 Hours Per Day (ICD-10-PCS; 2023-07-19)
PROC: 5A1D70Z Performance of Urinary Filtration, Intermittent, Less than 6 Hours Per Day (ICD-10-PCS; 2023-07-21)
PROC: 5A1D70Z Performance of Urinary Filtration, Intermittent, Less than 6 Hours Per Day (ICD-10-PCS; 2023-07-23)
PROC: 5A1D70Z Performance of Urinary Filtration, Intermittent, Less than 6 Hours Per Day (ICD-10-PCS; 2023-07-24)
PROC: 5A1D70Z Performance of Urinary Filtration, Intermittent, Less than 6 Hours Per Day (ICD-10-PCS; 2023-07-25)
PROC: 5A1D70Z Performance of Urinary Filtration, Intermittent, Less than 6 Hours Per Day (ICD-10-PCS; 2023-07-27)
PROC: 5A1D70Z Performance of Urinary Filtration, Intermittent, Less than 6 Hours Per Day (ICD-10-PCS; 2023-07-28)
DX: A41.9 Sepsis, unspecified organism (principal); J96.01 Acute respiratory failure with hypoxia; N17.0 Acute kidney failure with tubular necrosis; J69.0 Pneumonitis due to inhalation of food and vomit; R65.21 Severe sepsis with septic shock; G93.49 Other encephalopathy; A04.72 Enterocolitis due to Clostridium difficile, not specified as recurrent; J18.9 Pneumonia, unspecified organism; F19.10 Other psychoactive substance abuse, uncomplicated; Y95 Nosocomial condition; E87.5 Hyperkalemia; T40.5X1A Poisoning by cocaine, accidental (unintentional), initial encounter; D72.829 Elevated white blood cell count, unspecified; I95.9 Hypotension, unspecified; Z72.0 Tobacco use; Z99.2 Dependence on renal dialysis
CPT/HCPCS: 31500; 36415; 36600; 70450; 71045; 74018; 76604; 76770; 80048; 80053; 80202; 80305; 82803; 82948; 83605; 83735; 84100; 85025; 86430; 86704; 86706; 86708; 86709; 86803; 87040; 87070; 87081; 87086; 87205; 87340; 89220; 93005; 94002; 94003; 94640; 96374; 96375; 99291; C9113; J0610; J0692; J1165; J1644; J1815; J1940; J2060; J2250; J2310; J2543; J2704; J2765; J2920; J2930; J3010; J3370; J3490; J7030; J7060; P9046; Q0092

== ENCOUNTER 2023-11-11 04:50 | Emergency (ER) | payer MEDICAID ==
[~2023-11-11] VITALS: Ht 165.1 cm; Wt 59.0 kg
[~2023-11-11 04:50] MED LIST changes: +NALO4SPR NS
[2023-11-11 04:58] VITALS: BP 158/99; PULSE 98; RESP 20; TEMP 97.4; O2SAT 99
[2023-11-11 06:03] LABS: BASOPHILS # (AUTO) 0.1 K/uL (0.00-0.22); BASOPHILS % (AUTO) 0.7 % (0.0-2.0); EOSINOPHILS # (AUTO) 0.1 K/uL (0-0.4); EOSINOPHILS % (AUTO) 1.1 % (0.0-4.0); HEMATOCRIT 36.2 % (36-52); HEMOGLOBIN 11.3 g/dL (12.0-18.0); LYMPHOCYTES # (AUTO) 2.1 K/uL (2.0-11.5); LYMPHOCYTES % (AUTO) 23.3 % (20.5-51.1); MEAN CORPUSCULAR HEMOGLOBIN 26 pg (27-31); MEAN CORPUSCULAR HGB CONC 31 g/dL (33-37); MONOCYTES # (AUTO) 0.8 K/uL (0.8-1.0); MONOCYTES % (AUTO) 8.4 % (1.7-9.3); NEUTROPHILS # (AUTO) 6.1 K/uL (1.8-7.7); NEUTROPHILS % (AUTO) 66.5 % (42.2-75.2); PLATELET COUNT (AUTO) 586 K/uL (140-450); RED BLOOD CELL COUNT(AUTO) 4.31 MIL/uL (4.20-6.10); WHITE BLOOD COUNT (AUTO) 9.2 K/uL (4.8-10.8)
[2023-11-11 06:13] LABS: ANION GAP 14.1 (8-16); CARBON DIOXIDE 26.4 mmol/L (21-32); CREATININE 0.8 mg/dL (0.6-1.3); POTASSIUM 3.5 mmol/L (3.5-5.1)
[2023-11-11] MEDS: PENICILLIN G BENZATHINE L-A 1.2 MU/2 ML SYR IM ONE (06:43)
== END 2023-11-11 06:55 | disposition home or self-care (01) ==
LOC: MED 04:50
DX: R21 Rash and other nonspecific skin eruption (principal); L29.9 Pruritus, unspecified; Z79.2 Long term (current) use of antibiotics; Z79.899 Other long term (current) drug therapy
CPT/HCPCS: 36415; 80048; 85025; 86592; 96372; 99283; J0561

== ENCOUNTER 2023-12-24 06:00 | Emergency (ER) | payer MEDICAID ==
[~2023-12-24] VITALS: Ht 165.1 cm; Wt 59.0 kg
[2023-12-24 06:09] VITALS: BP 166/109; PULSE 88; RESP 16; TEMP 97.7; O2SAT 99
[2023-12-24 06:57] LABS: APPEARANCE,URINE CLEAR (CLEAR); BILIRUBIN,URINE NEGATIVE (NEGATIVE); BLOOD, URINE NEGATIVE (NEGATIVE); COLOR,URINE YELLOW (YELLOW); LEUKOCYTE ESTERASE ,URINE NEGATIVE (NEGATIVE); NITRITE, URINE NEGATIVE (NEGATIVE); PH,URINE 6.5 (5.0-9.0); PROTEIN,URINE NEGATIVE (NEGATIVE); UGLUCOSE NEGATIVE (NEGATIVE); UROBILINOGEN,URINE 0.2 EU/dL (0.2 - 1)
[2023-12-24 07:03] VITALS: BP 166/109; PULSE 88; RESP 16; TEMP 97.7; O2SAT 99
[2023-12-24] MEDS ORDERED: LIDOCAINE 2% 100 MG/5 ML SYR IVP ONE (07:05)
[2023-12-24] MEDS ORDERED: cefTRIAXone 500 MG VIAL ONE (07:05)
[2023-12-24] MEDS ORDERED: LIDOCAINE MPF 1% 5 ML ONE (07:06)
[2023-12-24] MEDS ORDERED: DOXY-690 PO (07:07)
[2023-12-24] MEDS: cefTRIAXone 500 MG in LIDOCAINE MPF 1% 1 ML IM ONE (07:16)
== END 2023-12-24 07:27 | disposition home or self-care (01) ==
LOC: MED 06:00
DX: R30.0 Dysuria (principal); Z20.2 Contact with and (suspected) exposure to infections with a predominantly sexual mode of transmission; Z79.2 Long term (current) use of antibiotics; Z79.899 Other long term (current) drug therapy
CPT/HCPCS: 81003; 87491; 96372; 99283; J0696; J2001

== ENCOUNTER 2024-01-24 00:52 | Emergency (ER) | payer MEDICAID ==
[~2024-01-24] VITALS: Ht 165.1 cm; Wt 65.8 kg
[2024-01-24 01:01] VITALS: BP 160/100; PULSE 92; RESP 14; TEMP 97.5; O2SAT 98
[2024-01-24] MEDS ORDERED: HYDR-2853 PO (01:29)
== END 2024-01-24 01:30 | disposition home or self-care (01) ==
LOC: MED 00:52
DX: I10 Essential (primary) hypertension (principal); Z79.2 Long term (current) use of antibiotics; Z79.899 Other long term (current) drug therapy
CPT/HCPCS: 99283

== ENCOUNTER 2024-02-03 01:10 | Emergency (ER) | payer MEDICAID ==
[~2024-02-03] VITALS: Ht 165.1 cm; Wt 65.8 kg
[~2024-02-03 01:10] MED LIST changes: +HYDR-2853 PO
[2024-02-03 01:16] VITALS: BP 125/78; PULSE 99; RESP 16; TEMP 96.8; O2SAT 100
== END 2024-02-03 01:40 | disposition left against medical advice (07) ==
LOC: MED 01:10
DX: Z11.3 Encounter for screening for infections with a predominantly sexual mode of transmission (principal); Z53.21 Procedure and treatment not carried out due to patient leaving prior to being seen by health care provider